=== PATIENT | female | born 1985 | race African-American/Black ===

== ENCOUNTER 2020-09-30 09:33 | Emergency (ER) | payer BC, SELFPAY ==
[2020-09-30] VITALS (14 sets, daily range): BP systolic 96–125; BP diastolic 65–91; PULSE 57–84; RESP 14–20; TEMP 36.6; O2SAT 98–100
--- NOTE | ~2020-09-30 | XR_ITS ---
EXAMINATION: XR chest 2V EXAM DATE: 09/30/2020 10:05 INDICATION: Mid chest pain. TECHNIQUE: Frontal and lateral projections of the chest obtained and reviewed. Comparison is made to prior examination from 04/25/2013. FINDINGS: The lungs are clear. There are no pleural effusions. The cardiomediastinal silhouette is within normal limits. There is no pneumothorax suspected. The bones and soft tissues are unremarkab le. IMPRESSION: Normal chest x-ray exam. Reviewed, dictated and finalized at location B. TECH IMPRESSION: Normal chest x-ray exam.
--- NOTE | 2020-09-30 09:36 | ECG_ITS ---
Measurements Intervals [place] Rate: 72 P: 44 W[place]: 145 QRS: 71 QRSD: 80 T: 41 QT: 356 QTc: 391 Interpretive Statements SINUS RHYTHM WITH MARKED SINUS ARRHYTHMIA BORDERLINE T WAVE ABNORMALITY- ANTERIOR LEADS BASELINE ARTIFACT- I, III, AVL BORDERLINE ECG Electronically Signed On 09-30-2020 10:20:01 JEWEL SUPERVISOR by Wally Coburn D.O.
[2020-09-30] MEDS: ASPIRIN 81 MG CHEWABLE TABLET 324 MG PO (09:54)
[2020-09-30 09:59] LABS: Basophils Absolute Auto 0.1 K/mm3 (0.0-0.1); Eosinophils Absolute Auto 0.1 K/mm3 (0-0.3); Eosinophils Percent Auto 0.9 % (0-4.4); Hematocrit 39.4 % (37.0-47.0); Hemoglobin 12.4 g/dL (12.0-15.0); Immature Granulocyte Absolute 0.03 K/mm3 (0.00-0.031); Immature Granulocyte Percent A 0.4 % (0-0.5); Lymphocytes Absolute Auto 2.16 K/mm3 (0.9-3.2); Lymphocytes Percent Auto 28.3 % (18.3-44.2); Mean Corpuscular HGB Conc 31.5 g/dl (32-36); Mean Corpuscular Hemoglobin 26.1 pg (26-34); Mean Corpuscular Volume 82.9 fl (80-100); Monocytes Absolute Auto 0.4 K/mm3 (0.1-0.6); Monocytes Percent Auto 5.1 % (2.6-8.5); Neutrophils Absolute Auto 4.9 K/mm3 (1.3-6.7); Neutrophils Percent Auto 64.3 % (45.5-73.1); Platelet Count Result 271 k/mm3 (150-375); Red Blood Count 4.75 M/mm3 (4.2-5.4); Red Cell Distribution Width 12.7 % (11.5-14.5); White Blood Count 7.6 K/mm3 (4.5-10.0)
[2020-09-30 10:09] LABS: Partial Thromboplastin Time 28.1 SECONDS (22.3-36.8); Prothrombin Time 13.5 Seconds (11.1-14.7)
[2020-09-30 10:12] LABS: Anion Gap 5 mmol/L (8-16); Blood Urea Nitrogen 11 mg/dL (7-17); Calcium 8.8 mg/dL (8.4-10.2); Carbon Dioxide 24 mmol/L (22-30); Chloride 109 mmol/L (98-107); Estimated CRCL calculation 85 ml/min; Estimated Glomerular Filt Rate > 60; Glucose 91 mg/dL (65-105); Potassium 4.2 mmol/L (3.4-5.0); Sodium 138 mmol/L (137-145)
[2020-09-30 10:24] LABS: Troponin I < 0.012 ng/mL (0.000-0.034)
[2020-09-30 10:57] LABS: D Dimer 0.46 ug/mL (<0.48)
--- NOTE | 2020-09-30 11:26 | ED.CHESTPAIN ---
HPI - Chest Pain General Chief Complaint: Chest Pain Stated Complaint: chest pain x 1 day Time Seen by Provider: 09/30/20 09:38 Source: patient Mode of arrival: ambulatory Limitations: no limitations History of Present Illness HPI narrative: 35-year-old with no major medical problems here with complaints of right-sided chest pain since yesterday. Patient states that every time she takes of breath breath in and out gets pain in the right side. She denies any cough or fever or chills. Denies any Covid exposure. No previous history of any coronary artery disease. complaint: chest pain Onset (ago): day(s) (1) Pain location: right chest Pain radiation: none Severity: mild Quality: aching Relieving factors: nothing Exacerbating factors: inspiration Risk Factors Coronary artery disease risk factors: none Related Data Allergies Allergy/AdvReac Type Severity Reaction Status Date / Time No Known Allergies Allergy Verified 09/30/20 09:53 Review of Systems Review of Systems: All systems reviewed & are unremarkable except as noted in HPI and below Constitutional: Constitutional: Reports no additional constitutional complaints Eyes: Eyes: Reports no additional eye complaints ENT: Reports system reviewed and no additional complaints, except as documented Cardiovascular: Cardiovascular: Reports as per HPI Respiratory: Respiratory: Reports as per HPI Gastrointestinal: Gastrointestinal: Reports no additional gastrointestinal complaints Musculoskeletal: Musculoskeletal: Reports no additional musculoskeletal complaints Neurologic: Reports system reviewed and no additional complaints, except as documented Psychiatric: Psychiatric: Reports no additional psychiatric complaints [facility] Family History Family History Father Cerebrovascular accident Social History Social History Smoking status: Never smoker Alcohol intake: current Gender identity (if verbalized by the patient): Female Exam Narrative: Exam Narrative: GENERAL: Well-appearing, well-nourished, and in no acute distress. HEAD: Normocephalic, atraumatic. EYES: PERRLA and EOMI. NECK: Supple. CHEST: Clear to auscultation. No respiratory distress. Non tender on palpation HEART: Regular rate and rhythm. No murmur heard. Normal peripheral pulses. ABDOMEN: Soft, nontender, nondistended, normal active bowel sounds. EXTREMITIES: Normal range of motion. No edema. SKIN: Warm, dry, no rash. NEURO: No focal deficits. Alert and oriented x3. PSYCH: Normal mood and affect. Course Vital Signs Vital signs: Vital Signs Temperature 36.6 C 09/30/20 09:37 Pulse Rate 78 09/30/20 09:37 Respiratory Rate 17 09/30/20 09:37 Blood Pressure 125/91 H 09/30/20 09:37 Pulse Oximetry 98 09/30/20 09:37 Temperature 36.6 C 09/30/20 09:37 Pulse Rate 59 L 09/30/20 11:09 Respiratory Rate 20 09/30/20 11:09 Blood Pressure 96/81 L 09/30/20 11:09 Pulse Oximetry 100 09/30/20 11:09 MDM - Chest Pain MDM Narrative Medical decision making narrative: With a given history of chest pain on and off since yesterday we will do cardiac work-up. However patient has no pain at this time. Differential Diagnosis Differential diagnosis: Likely unstable angina pectoris, costochondritis and chest pain Lab Data Result diagrams: 09/30/20 09:48 09/30/20 09:46 Labs: Lab Results 09/30/20 09/30/20 09/30/20 Range/Units 09:46 09:46 09:46 WBC (4.5-10.0) K/mm3 RBC (4.2-5.4) M/mm3 Hgb (12.0-15.0) g/dL Hct (37.0-47.0) % MCV (80-100) fl MCH (26-34) pg MCHC (32-36) g/dl RDW (11.5-14.5) % Plt Count (150-375) k/mm3 MPV (7.4-10.4) fl Immature Gran % (Auto) (0-0.5) % Neut % (Auto) (45.5-73.1) % Lymph % (Auto) (18.3-44.2) % [place] % (Auto) (2.6-8.5) % Eos % (Auto) (0-4
== END 2020-09-30 11:39 | disposition home or self-care (01) ==
PROVIDERS: Emergency Provider Family Medicine
DX: R07.9 Chest pain, unspecified (principal); R94.31 Abnormal electrocardiogram [ECG] [EKG]
CPT/HCPCS: 36415; 71046; 80048; 84484; 85025; 85380; 85610; 85730; 93005; 99284; A9270

== ENCOUNTER → 2021-01-17 16:14 | Outpatient (CLI) | payer BC, SELFPAY ==
--- NOTE | ~2021-01-17 | XR_ITS ---
XR lumbar spine 2-3V DATE: 01/17/2021 16:41 INDICATION: Low back pain TECHNIQUE: AP, lateral and coned lateral lumbosacral standing views COMPARISON: 03/21/2016 CT lumbar spine FINDINGS: There is mild dextroscoliosis of the lumbar spine. Normal alignment of the lumbar spine. No fracture or bone destruction or spondylolisthesis. The lumba r pedicles are intact. Mild loss of height at L5-S1 disc space. Remaining lumbar interspaces appear well preserved. The sacroiliac joints are unremarkable. IMPRESSION: Mild dextroscoliosis Mild loss of height at L5-S1 disc space Reviewed, dictated and finalized at location A.
== END ==
PROVIDERS: PCP Internal Medicine; Visit Provider Internal Medicine
DX: M54.5 Low back pain (principal); M41.86 Other forms of scoliosis, lumbar region
CPT/HCPCS: 72100

== ENCOUNTER 2021-11-30 00:58 | Day surgery (SDC) | payer BC, SELFPAY ==
[2021-11-28 16:33] VITALS: BMI 26.6
--- NOTE | 2021-11-28 16:47 | PC.NURSE ---
Report to the Outpatient Waiting Room, entrance under the green pavilion located off [facility], at 0830 on 11-30-21. OR Time: 1030. - You and your visitor will be asked a series of questions to screen for COVID 19 for your protection. - A mask is required within the hospital. Preoperative COVID Testing Requirements: No COVID Test needed if: (proof is required; if not received patient will have Rapid Test prior to entry) - Patient has received COVID Vaccine at least 14 days prior to procedure date or - Patient has positive COVID test result within last 90 days of surgery date. COVID Test needed if above criteria is not met If not COVID vaccinated a COVID test must be conducted within 72 hours of surgery and patient is asked to isolate self from time of testing until procedure. You will go to the [facility] for your COVID testing. The [facility] is located at the corner of [address] [facility]. You will only be called if COVID results are positive and your surgeon may reschedule your elective surgery date. Patients may have clear liquids (water, carbonated beverages, clear teas, apple juice) until 3 hours prior to surgery with a maximum of 20 ounces. 0730 - No food from midnight until time of surgery - Infants may have breast milk until 4 hours before surgery, formula 6 hours prior to surgery. - Children will be allowed to drink immediately following surgery. If applicable, please bring a bottle or sippy cup to assist with drinking. Juice, water, soda, and popsicles are readily available. For infants on formula, please bring formula the day of surgery. Pacifiers are allowed. Take the following medications with a SIP of water the morning of surgery: None Medications to discontinue per physician: Vitamins and supplements Date to take last dose: 11-28-21 Please no make-up, nail telugu, hairspray, perfume, deodorant, or body powder the day of surgery. No jewelry (including any body piercings) or valuables the day of surgery, leave them at home. Please take a shower or bath the night before, or the morning of, surgery with an antibacterial soap. Wear comfortable, loose fitting clothing. Children are encouraged to wear pajamas. - Jewelry must be removed prior to entering the operating room. Rings and piercings that are not removed may be cut off. - The hospital will not accept responsibility for valuables. - Please leave all valuables, including medications, at home the day of surgery. If you are going home after surgery, a licensed bottom hoop driver must drive you home. - NO public transportation without another adult. - We recommend that an adult stay with you for 24 hours following discharge. - We also recommend that you do not drive, make important decision, drink alcoholic beverages, or take any drugs that were not prescribed by your health care provider for at least 24 hours after your discharge time. For Pediatric surgeries, we recommend two adults accompany the child home (only one inside the building at this time). One visitor will be allowed to accompany the patient into the hospital. Patients visitor will be instructed to remain with patient at all times or leave the building. We will allow the visitor to come back to the postoperative area when patient is ready. Follow any additional instructions given to you from your surgeon. Telephone instructions given to Kallie Van and asked if any additional questions and then verbalized understanding. Patient advised to call surgeon office or pre surgery nurse liaison [phone] if any additional questions.
[2021-11-30 09:24] VITALS: BP 112/69; PULSE 77; RESP 14; TEMP 36.8; O2SAT 100; BMI 27.3
[2021-11-30] MEDS: ACETAMINOPHEN 500 MG TABLET 1000 MG PO (09:25)
[2021-11-30] MEDS: LACTATED RINGERS 1,000 ML 30 ML IV CONT (09:25)
--- NOTE | 2021-11-30 09:37 | WPDANESEPPF ---
Anes - Initial Pre Proc Eval Procedure: Operation Date: 11/30/21 10:30 Proposed Procedures p Suction Dilation and Curettage - Rosanne Gardner MD Date/Time: 11/30/21 09:37 Surgeon: Rosanne Gardner MD Pre Op Diagnosis: missed ab Patient Data Age: 36 Gender: F Height: 1.7 m Weight: 79.25 kg Last Vital Signs Temp 98.2 F 11/30/21 09:24 Pulse 77 11/30/21 09:24 Resp 14 11/30/21 09:24 BP 112/69 11/30/21 09:24 Pulse Ox 100 11/30/21 09:24 Allergies Allergy/AdvReac Type Severity Reaction Status Date / Time No Known Allergies Allergy Verified 11/28/21 16:30 Home Medications Medication Instructions Recorded Confirmed Type vit no.430-kwanx-zol 1 tablet PO DAILY 11/28/21 11/28/21 History [Alive ] Patient hx anesthesia problems: none Family hx anesthesia problems: none Results Review: All pre-operative results and documents have been reviewed as part of the pre-operative evaluation. PMFSH Family History Family History Father Cerebrovascular accident Social History Social History (System 10/28/21 @ 15:52 by Annel Dang) Smoking status: Never smoker Second hand tobacco smoke exposure: No Alcohol intake: current Drinks per week: 2 Substance use: never Substance use type: does not use Living arrangements: with family Gender identity (if verbalized by the patient): Female Spiritual care concerns: No Anes - Eval Final PreProcedure Day of Procedure 11/30/21 09:37 Patient weight: overweight Heart: regular rate and rhythm Lungs: clear to auscultation Airway: Mallampati scale class II Neurological: alert and oriented Last oral intake: >/= 8 hours ASA classification: II Emergent: no Anesthetic plan: proceed Anesthesia type and monitoring: general GIVS and standard monitoring Results Review: All pre-operative results and documents have been reviewed as part of the pre-operative evaluation. Informed Consent: The patient's anesthetic plan and its attendant risks and benefits were discussed with the patient/family/POA. Questions were solicited and answers provided to the satisfaction of the patient/family/POA.
--- NOTE | 2021-11-30 09:47 | WPDHPUPDATE1 ---
History and Physical Update Update Date/Time: 11/30/21 09:47 History and Physical has been reviewed, including an updated exam of the patient. There are NO changes in the patient's condition. Risks, benefits, and alternatives have been discussed and questions answered. Patient agrees to proceed with procedure.
--- NOTE | 2021-11-30 10:34 | P.OP_ITS ---
Procedure Note - Detailed Date of Procedure 11/30/21 Pre-op Diagnosis missed ab Post-op Diagnosis Same Procedure Performed Suction D&C Surgeon Rosanne Gardner MD Anesthesia MAC Indications missed Findings normal-appearing vulva vagina and cervix to. Moderate amount of products conception within the uterus. 8 cm uterus Description of Procedure the patient was taken the operating room. She was prepped and draped in dorsal lithotomy position after induction of mac anesthesia. A speculum was placed in the vagina. Cervix grasped with tenaculum. The cervix was dilated to about 1 cm Using Joyce dilators. A 8. Portuguese curved curette was used to perform suction D&C. The curette was introduced and vacuum was applied. The curette was removed over all surfaces of the intrauterine cavity multiple times. This was done until all the surfaces were clear and had the familiar grainy texture they can be felt through the instrument. A sharp curette was then used to curettage all the surfaces. The suction cup was then reapplied 1 more time to remove any debris. The instruments were removed. The speculum and tenaculum were removed. The patient tolerated the procedure well. She was taken recovery room stable condition. Estimated Blood Loss 50 Drains No Packing No Pathology Yes Complications No immediate complications Condition Stable Disposition PACU
[2021-11-30 10:37] VITALS: BP 118/62; PULSE 81; RESP 15; O2SAT 96
[2021-11-30 11:00] VITALS: BP 109/76; PULSE 82; RESP 20
[2021-11-30 11:30] VITALS: BP 110/68; PULSE 67; RESP 20
[2021-11-30 12:00] VITALS: BP 102/70; PULSE 60; RESP 20
== END 2021-11-30 12:15 | disposition home or self-care (01) ==
PROVIDERS: PCP Internal Medicine; Visit Provider Obstetrics & Gynecology
PROC: (CPT 59820; principal; 2021-11-30 10:30)
DX: O02.1 Missed abortion (principal); Z3A.00 Weeks of gestation of pregnancy not specified
CPT/HCPCS: 59820; 88305; A9270; J2250; J2704; J3010; J7120

== ENCOUNTER 2024-07-24 12:29 | Emergency (ER) | payer OTHER, SELFPAY ==
[2024-07-24 12:47] VITALS: BP 152/97; PULSE 70; RESP 16; TEMP 37.2; O2SAT 100
--- NOTE | 2024-07-24 12:57 | ED.HEATRA ---
HPI - Head Injury General Chief complaint: Head Injury Stated complaint: HEAD INJURY Time Seen by Provider: 07/24/24 12:50 Source: patient Mode of arrival: ambulatory Limitations: no limitations History of Present Illness HPI Narrative: Kallie is a 39-year-old female patient presenting to the clinic today with complaints a possible head injury. 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 Denies any loss of conscious or neck pain however she did feel as though she had some visual changes and nausea when this occurred. Denies any visual changes currently. Reports headache on the right side of the head rating an 8/10. Also reports that the headache is worse when she is walking. Denies any dizziness, confusion, or weakness. Does have some numbness and tingling in her right leg that is worse when she is walking. Denies any saddle anesthesia. No slurred speech, drooling, or stroke-like symptoms Related Data Home Medications ?Medication ?Instructions ?Recorded ?Confirmed ?Last Taken ?Type vitamin no.138-folic acid 1 tablet PO DAILY 11/28/21 11/28/21 Unknown History 400 mcg-dha 25 mg chewable tablet Allergies Allergy/AdvReac Type Severity Reaction Status Date / Time No Known Allergies Allergy Verified 01/29/24 12:57 Review of Systems Review of Systems: Pertinent positives per HPI. Patient denies any fever, chills, rash, visual changes, dizziness, cough, runny nose, sore throat, shortness of breath, chest pain, palpitations, vomiting, diarrhea, constipation, abdominal pain, or any urinary issues. [facility] Family History Family History Father Cerebrovascular accident Father Hypertension Cerebrovascular accident Social History Social History Smoking status: Never smoker Second hand tobacco smoke exposure: No Alcohol intake: current Drinks per week: 2 Substance use: never Substance use type: does not use Living arrangements: with family Gender identity (if verbalized by the patient): Female Spiritual care concerns: No Comments At the time of my signature, I reviewed and agree with the nursing past medical, surgical, social, and family history. There is no relevant family history pertinent to the patient complaint. Exam Narrative: General: Well-developed, well nourished, in no apparent distress Head: Normocephalic, atraumatic Eyes: Pupils equally round and reactive to light bilaterally, EOM intact, sclera and conjunctive clear, no discharge, lids normal Ears: TMs intact and clear, ear canals clear, no drainage, grossly hearing normal. Nose: Nares patent, no discharge, no inflammation, no sinus tenderness. Mouth: Oropharynx without lesions or masses, good dentition, MMM. Tongue midline, even rise and fall of uvula Neck: Supple, trachea midline, no enlargement of anterior or posterior cervical nodes, no thyroid masses or goiter palpable. Cardio: Regular rate and rhythm, s1 and s2 normal, no murmur appreciated. Resp: Clear to auscultation bilaterally anteriorly and posteriorly, no rhonchi, rales, wheezing or rubs Musculoskeletal: No deformity, non-tender to palpation, grossly normal range of motion, muscle strength strong and equal, peripheral pulse strong, no edema, no cyanosis, normal gait and station Neuro: Alert and oriented x4 with normal speech, no focal deficits, cranial nerves I through XII intact, muscle strength 5 out of 5, sensation intact bilaterally. Course Course Emergency Course: Portions of this record may have been created with voice recognition software. Level of Care: Express Care Visit Vital Signs Vital signs: Vital Signs Temperature 37.2 C 07/24/24 12:47 Pulse Rate 70 07/24/24 12:47 Respiratory Rate 16 07/24/24 12:47 Blood Pressure 152/97 H 07/24/24 12:47 Pulse Oximetry 100 07/24/24 12:47 Temperature 37.2 C 07/24/24 12:47 Pulse Rate 70 07/24/24 12:47 Respiratory Rate 16 07/24/24 12:47 Blood Pressure 152/97 H 07/24/24 12:47 Pulse Oximetry 100 07/24/24 12:47 Vital signs reviewed MDM - Head Injury MDM Narrative Medical decision making narrative: At the time of visit patient is resting comfortably on the exam table. Patient appears to be nontoxic. Plan: Neuro checks are normal in the clinic today. Patient's symptoms are consistent with a closed head injury/concussion. Patient did not lose consciousness and denies any neck pain. Do not feel as though a CT scan of the patient's head is needed at this time. Red flag symptoms reviewed with the patient. Supportive measures were discussed with the patient and they voiced understanding discharge instructions and agrees to treatment plan. Return precautions reviewed Differential Diagnosis Differential diagnosis: Likely concussion without loss of consciousness, epidural hematoma, closed head injury, subarachnoid hematoma, postconcussion syndrome, subdural hematoma and concussion with loss of consciousness Discharge Plan Discharge Clinical Impression: Closed head injury Qualifiers: Encounter type: initial encounter Qualified Code(s): S09.90XA - Unspecified injury of head, initial encounter Patient Disposition: Home, Self-Care Condition: Stable Instructions: Antibiotic Form, Concussion (ED), Head Injury (ED) Additional Instructions: Tylenol as needed for headache for the first 24 hours then may take Ibuprofen or Aleve, Increase fluids and stay well hydrated. Avoid taking any sedative medications such as muscle relaxers, Benadryl, Benzo, or narcotic pain medication. Watch for red flag symptoms such as confusion, lethargy, nausea/vomiting, worsening of headache, visual changes, increase in dizziness, or any stroke-like symptoms. If these symptoms develop go to the Emergency Room immediately. Reduce stimuli- lights, computers, videogames, smart phones, tv, and noise over the next 2 days. Increase stimuli gradually. If headache worsens with stimuli reduce stimuli to tolerable level. Follow up with your PCP in 3-5 days if symptoms persist as post-concussion syndrome treatment may need to be initiated. Patient Language: Lebanese Prescriptions: No Action Alive 400 mcg- 25 mg Tablet,Chewable 1 tablet PO DAILY Follow-up/Referrals: Philomena Caba MD [Primary Care Provider] - Stand Alone Forms: Work/School Release IP Time of Disposition: 13:02 Quality NIHSS Nursing Documentation ED NIHSS nursing documentation: reviewed/agree
== END 2024-07-24 13:22 | disposition home or self-care (01) ==
PROVIDERS: Emergency Provider Nurse Practitioner Family; PCP Internal Medicine
DX: S09.90XA Unspecified injury of head, initial encounter (principal); W21.06XA Struck by volleyball, initial encounter; Y93.68 Activity, volleyball (beach) (court); Y92.212 Middle school as the place of occurrence of the external cause
CPT/HCPCS: 99213; G0463